=== PATIENT | male | born 1985 ===

== ENCOUNTER 2022-07-16 15:27 | Inpatient (IN) | payer OTHER ==
[~2022-07-16] VITALS: Wt 59.2 kg
[2022-07-16] VITALS (14 sets, daily range): BP systolic 97–114; BP diastolic 52–75
--- NOTE | 2022-07-16 19:10 | NUR ---
PT ARRIVED TO ICU AT 1745 UPON ARRIVAL, PT INSISTED ON USING COMMODE BEFORE BEING HOOKED UP TO TELE MONITOR. AFTER BM, PT ASSISTED TO HOSPITAL BED AND AGREED TO MONITORING. A/O, APPRECIATIVE OF CARE. SR WITH PVC'S, PROLONGED QT, BP STABLE. ON 2L NC TO MAINTAIN O2 SAT > 94%. LUNGS CTA, DIMISHED BASES. DENIES NAUSEA AT THIS TIME BUT HAD SEVERAL BOUTS OF VOMITING AND SEVERE NAUSEA BEFORE BEING TRANSPORTED FROM [facility]. BS HYPOACTIVE. PT OOB TO BSC TWICE, BM BOTH TIMES BUT NO URINE OUTPUT. PT HAS NOT HAD ANY UO SINCE ARRIVING AT [facility] PER RN REPORT. SKIN INTACT. 20 G PIV TO BILAT AC'S. SL. NOTIFIED DR. SOLIMAN UPON PT ARRIVAL. REPORT GIVEN TO ONCOMING RN.
[2022-07-16 19:48] LABS: BASOPHILS ABSOLUTE AUTO 0.07 K/mm3 (0.00-0.23); BASOPHILS PERCENT AUTO 1 % (0-2); EOSINOPHILS PERCENT AUTO 1 % (0-6); Hematocrit 49.1 % (37.0-53.0); Hemoglobin 16.9 g/dL (13.5-17.5); IMMATURE GRAN ABSOLUTE AUTO 0.05 K/mm3 (0.00-0.10); IMMATURE GRAN PERCENT AUTO 0 % (0-1); LYMPHOCYTES ABSOLUTE AUTO 1.27 K/mm3 (0.84-5.20); LYMPHOCYTES PERCENT AUTO 11 % (21-46); MONOCYTES ABSOLUTE AUTO 1.38 K/mm3 (0.16-1.47); MONOCYTES PERCENT AUTO 12 % (4-13); Mean Corpuscular HGB 30.7 pg (26.0-34.0); Mean Corpuscular HGB Conc 34.4 g/dL (31.5-36.5); Mean Corpuscular Volume 89 fL (80-100); Mean Platelet Volume 10.2 fL (9.1-12.4); NEUTROPHILS ABSOLUTE AUTO 8.36 K/mm3 (1.96-9.15); NEUTROPHILS PERCENT AUTO 75 % (41-73); Platelet Count 272 K/mm3 (150-400); RDW Coefficient Variation 11.9 % (11.7-14.2); RDW Standard Deviation 39.3 fL (35.1-46.3); White Blood Cell Count 11.23 K/mm3 (4.00-11.30)
[2022-07-16 20:33] LABS: Albumin, Blood 2.9 g/dL (3.4-5.0); Anion Gap Unable to Calculate mmol/L (6-16); Blood Urea Nitrogen 51 mg/dL (8-24); Bun/Creatinine Ratio 5.6 (12.0-20.0); CO2, Blood >45 mmol/L (21-32); Chloride, Blood 69 mmol/L (98-108); Creatinine, Blood 9.03 mg/dL (0.60-1.20); Glomerular Filtration Rate 7 (60-); Glucose, Blood 80 mg/dL (70-99); Phosphorus, Blood 6.7 mg/dL (2.5-4.9); Potassium, Blood 3.2 mmol/L (3.5-5.5); Sodium, Blood 125 mmol/L (136-145)
[2022-07-17] VITALS (23 sets, daily range): BP systolic 92–151; BP diastolic 43–90
--- NOTE | 2022-07-17 02:47 | NUR ---
PT UNABLE TO SWALLOW MEDICATIONS AT THIS POINT. ATTEMPT TO GIVE LIBRIUM CAPSULE TO PT RESULTED IN PT COUGING ON WATER AND SPITTING CAPSULE OUT. EMESIS BAG GIVEN TO PT IN CASE OF VOMIT. PT STARTED TO BLOW AIR INTO THE EMESIS BAG CLEARLY NOT UNDERSTANDING WHAT IT WAS FOR. PT NOT REDIRECTABLE.
[2022-07-17 03:37] LABS: BASOPHILS ABSOLUTE AUTO 0.08 K/mm3 (0.00-0.23); BASOPHILS PERCENT AUTO 1 % (0-2); EOSINOPHILS ABSOLUTE AUTO 0.62 K/mm3 (0.00-0.68); EOSINOPHILS PERCENT AUTO 6 % (0-6); Hematocrit 44.8 % (37.0-53.0); Hemoglobin 15.6 g/dL (13.5-17.5); IMMATURE GRAN ABSOLUTE AUTO 0.02 K/mm3 (0.00-0.10); IMMATURE GRAN PERCENT AUTO 0 % (0-1); LYMPHOCYTES ABSOLUTE AUTO 2.03 K/mm3 (0.84-5.20); LYMPHOCYTES PERCENT AUTO 18 % (21-46); MONOCYTES ABSOLUTE AUTO 1.41 K/mm3 (0.16-1.47); MONOCYTES PERCENT AUTO 13 % (4-13); Mean Corpuscular HGB 31.5 pg (26.0-34.0); Mean Corpuscular HGB Conc 34.8 g/dL (31.5-36.5); Mean Corpuscular Volume 91 fL (80-100); Mean Platelet Volume 10.1 fL (9.1-12.4); NEUTROPHILS ABSOLUTE AUTO 7.02 K/mm3 (1.96-9.15); NEUTROPHILS PERCENT AUTO 63 % (41-73); Platelet Count 291 K/mm3 (150-400); RDW Standard Deviation 39.7 fL (35.1-46.3); Red Blood Cell Count 4.95 M/mm3 (4.30-5.90); White Blood Cell Count 11.18 K/mm3 (4.00-11.30)
[2022-07-17 04:02] LABS: Magnesium, Blood 1.9 mg/dL (1.6-2.4)
[2022-07-17 04:24] LABS: Albumin, Blood 2.7 g/dL (3.4-5.0); Bilirubin, Total 0.8 mg/dL (0.1-1.0); Bun/Creatinine Ratio 6.1 (12.0-20.0); Calcium, Blood 6.8 mg/dL (8.5-10.1); Creatinine, Blood 8.74 mg/dL (0.60-1.20); Globulin, Blood 2.7 g/dL (2.2-4.0); Potassium, Blood 2.6 mmol/L (3.5-5.5); Total Protein, Blood 5.4 g/dL (6.4-8.2)
--- NOTE | 2022-07-17 05:41 | NUR ---
END OF SHIFT SUMMARY PT BEGAN ADMISSION A/O X4. PT WAS LETHARGIC BUT ANSWERED QUESTIONS APPROPRIATELY. WITHIN A FEW HOURS HE STARTED TO GET MORE AND MORE CONFUSED, SWEATING, MINOR TREMORS ONLY BY FEEL. CIWA AT ADMISSION 1-2, INCREASED TO 20 BY 0200. LIBRIUM GIVEN EARLY IN SHIFT AND PATIENT WAS ABLE TO SWALLOW THE CAPSULES. ATTEMPT TO GIVE LIBRIUM A FEW HOURS LATER FAILED D/T PATIENT CONFUSION AND INABILITY TO SWALLOW CAPSULE. ATIVAN GIVEN 2 TIMES THIS SHIFT. CIWA AT 20 AT 0210, 4MG ATIVAN GIVEN AT THAT TIME. AT 0430 PT BEGAN TO DESAT IN LOW 80'S WITH SHALLOW BREATHING. HEAD OF BED ELEVATED AND VIGOROUS SUCTION INITIATED WITH MINIMAL RECOVERY. AXYMIZER INCREASED TO 9 LPM WITH ACHIEVED >93% SATURATION. CARDIAC- HR 70'S-80'S MOST OF THE SHIFT WITH INTERMITENT TACHY EPISODES THROUGHOUT THE NIGHT. SBP 100'S WITH NO CHANGED THROUGHOUT THE SHIFT. FREQUENT PVC'S APPARENT WHEN PT WAS ADMITTED AND HAS SINCE SUBSIDED AT THIS TIME. RESP- PT UNABLE TO MAINTAIN SATS ABOVE 90% WITHOUT SUPPLEMENTATION. EXPIRATORY WHEEZE IN LEFT LOBES WITH NON PRODUCTION CONGESTED WEAK COUGH. PT IS NOT FOLLOWING COMMANDS AT THIS TIME. PT HAS SEVERE APNEIC EPISODES WHILE SLEEPING, RESULTING IN SMALL SHALLOW BREATHS AND DESATS IN LOW 80'S. GI, - NO URINE PRODUCED THIS SHIFT. BLADDER SCAN SHOWED ONLY 90 CC'S URINE. UNABLE TO COLLECT URINE SPECIMEN. NO BM THIS SHIFT. C/O NAUSEA WHEN ADMITTED, HOWEVER DENIES ANY NOW. INTEG- PT IS PALE IN COLOR AND SWEATING PROFUSELY. SMALL SCATTERED BRUISING WITH NO OPEN WOUNDS OR SORES. LR'S RUNNING AT 125 MLS/HR WITH SECOND BAG HUNG NOW. 20 MEQ POTASSIUM RUNNING AT THIS TIME. LEFT AND RIGHT AC IV'S WERE NOT STARTED AT THIS FACILITY. IV IN RIGHT FOREARM PLACED BY CHRISTA HOLMAN THIS SHIFT. WILL CONTINUE TO MONITOR PT UNTIL REPORT IS GIVEN TO DAYSHIFT.
--- NOTE | 2022-07-17 07:57 | NUR ---
ASSUMED CARE OF PT AT 0715 PT APPEARS TO BE RESTING COMFORTABLY, HOB ELEVATED, ON 9L VIA OXYMIZER. SOMNOLENT AND ORIENTED TO PERSON ONLY. NO URINE OUTPUT. BLADDER SCAN REVEALED 90ML IN BLADDER. V/S STABLE. RN TO CONITNUE TO MONITOR.
[2022-07-17 08:46] LABS: Phosphorus, Blood 4.9 mg/dL (2.5-4.9)
--- NOTE | 2022-07-17 13:37 | NUR ---
PT REMAINS SOMONLENT, AROUSABLE TO VOICE AND ORIENTED X PERSON AND PLACE. SPEECH SLOW AND MUMBLED BUT COHERENT. NO HALLUCINATIONS OR TREMORS NOTED. OOB TO STAND AT BEDSIDE TO VOID. 400ML UO VOIDED INTO URINAL. DR. CACERES UPDATED ON I/O. 1400 LABS ORDERED, WOULD LIKE TO BE NOTIFIED OF RESULTS BY 1500. RN TO CONTINUE TO MONITOR.
[2022-07-17 14:29] LABS: Albumin, Blood 2.5 g/dL (3.4-5.0); Anion Gap 11 mmol/L (6-16); Blood Urea Nitrogen 49 mg/dL (8-24); Bun/Creatinine Ratio 6.3 (12.0-20.0); CO2, Blood 37 mmol/L (21-32); Calcium, Blood 6.8 mg/dL (8.5-10.1); Chloride, Blood 84 mmol/L (98-108); Creatinine, Blood 7.76 mg/dL (0.60-1.20); Glomerular Filtration Rate 9 (60-); Glucose, Blood 65 mg/dL (70-99); Magnesium, Blood 1.7 mg/dL (1.6-2.4); Phosphorus, Blood 4.1 mg/dL (2.5-4.9); Potassium, Blood 2.6 mmol/L (3.5-5.5); Sodium, Blood 132 mmol/L (136-145)
--- NOTE | 2022-07-17 18:50 | NUR ---
END OF SHIFT SUMMARY PT WITH INCREASING MENTATION THIS SHIFT. AWAKE AND WATCHING TV. HAS BEEN OOB WITH MODERATE ASSIST X2 TO URINATE AND HAVE BM, REMAINS VERY WEAK. SR, BP STABLE. TITRATED O2 DOWN TO 2L NC. LUNGS CLEAR WITH DIMISHED BASES. OCCASIONAL COUGH, LOOSE BUT NON-PRODUCTIVE. DRINKING AND EATING WITHOUT DIFFICULTY, APPETITE POOR, HAD ENSURE AND PUDDING FOR DINNER. DENIES NAUSEA, NO VOMITING. VOIDS USING URINAL WITH ASSIST WHILE STANDING AT BEDSIDE. SKIN INTACT. PARTIAL BATH DONE WHILE OOB TO COMMODE. LINENS CHANGED. PIV X3, NS AT 15OML/HR, POTASSIUM REPLACEMENT INFUSING. DR. CACERES REQUESTS BUMEX IV AFTER POTASSIUM INFUSION COMPLETED, THEN STAT SERUM POTASSIUM DRAW. HE REQUESTS TO BE CALLED WITH THE RESULTS. REPORT TO ONCOMIN SHIFT.
--- NOTE | 2022-07-17 19:44 | NUR ---
ASSUMED CARE OF PT AT 1900 A/O X4. ABLE TO MAKE NEEDS KNOWN. PT UP TO BEDSIDE COMMODE AT SHIFT CHANGE FOR BM AND 450 MLS URINE OUT. PT VERY WEAK AND NEEDS 1 PERSON ASSIST AT THIS TIME. 2 LPM NC WITH >93%. DESATS WHEN UP TO COMMODE. NS @150 MLS/HR K RUNNING AT THIS TIME. SEE FULL ASSESSMENT FOR FURTHER INFORMATION.
[2022-07-18 03:25] LABS: BASOPHILS ABSOLUTE AUTO 0.06 K/mm3 (0.00-0.23); BASOPHILS PERCENT AUTO 1 % (0-2); EOSINOPHILS ABSOLUTE AUTO 0.64 K/mm3 (0.00-0.68); EOSINOPHILS PERCENT AUTO 5 % (0-6); Hematocrit 49.3 % (37.0-53.0); Hemoglobin 16.9 g/dL (13.5-17.5); IMMATURE GRAN ABSOLUTE AUTO 0.03 K/mm3 (0.00-0.10); IMMATURE GRAN PERCENT AUTO 0 % (0-1); LYMPHOCYTES ABSOLUTE AUTO 1.69 K/mm3 (0.84-5.20); LYMPHOCYTES PERCENT AUTO 14 % (21-46); MONOCYTES PERCENT AUTO 12 % (4-13); Mean Corpuscular HGB 31.2 pg (26.0-34.0); Mean Corpuscular HGB Conc 34.3 g/dL (31.5-36.5); Mean Corpuscular Volume 91 fL (80-100); Mean Platelet Volume 10.5 fL (9.1-12.4); NEUTROPHILS ABSOLUTE AUTO 8.19 K/mm3 (1.96-9.15); NEUTROPHILS PERCENT AUTO 68 % (41-73); Platelet Count 254 K/mm3 (150-400); RDW Coefficient Variation 11.7 % (11.7-14.2); RDW Standard Deviation 38.9 fL (35.1-46.3); Red Blood Cell Count 5.42 M/mm3 (4.30-5.90); White Blood Cell Count 12.01 K/mm3 (4.00-11.30)
[2022-07-18 03:51] LABS: Albumin, Blood 2.4 g/dL (3.4-5.0); Anion Gap 6 mmol/L (6-16); Blood Urea Nitrogen 48 mg/dL (8-24); Bun/Creatinine Ratio 8.4 (12.0-20.0); CO2, Blood 36 mmol/L (21-32); Calcium, Blood 7.4 mg/dL (8.5-10.1); Chloride, Blood 91 mmol/L (98-108); Glomerular Filtration Rate 12 (60-); Glucose, Blood 83 mg/dL (70-99); Magnesium, Blood 1.6 mg/dL (1.6-2.4); Phosphorus, Blood 3.8 mg/dL (2.5-4.9); Potassium, Blood 2.9 mmol/L (3.5-5.5); Sodium, Blood 133 mmol/L (136-145); Uric Acid, Blood 14.7 mg/dL (3.5-7.2)
--- NOTE | 2022-07-18 05:21 | NUR ---
END OF SHIFT SUMMARY PT RESTED MOST OF THE NIGHT WITHOUT ISSUE. A/O X2. PT CONFUSED OF WHERE HE IS. ALSO STATES "I FEEL LIKE I AM IN A DIFFERENT WORLD". DENIES HALLUCINATIONS HOWEVER DOES GRAB AT THE AIR AND CONFUSED OF CORDS AND LINES ATTACHED TO HIM. PT IS VERY WEEK WHEN STANDING ON HIS OWN. NEEDS ONE PERSON ASSIST. PT WILL TRY TO GET UP OFF OF BEDSIDE COMMODE ON HIS OWN. RESP- 2 LPM NC WITH NO DESAT EPISODES THIS SHIFT. COUGH IS GETTING STRONGER. NO EXPIRATORY WHEEZE ON LEFT SIDE HEARD ANYMORE. CARDIAC- NSR WITH NO ACUTE CHANGES. HR AND BP WNL. GI,- PT HAS HAD MULTIPLE LIQUID STOOLS BROWN IN COLOR. PT DID NOT LISTEN WHEN SITTING ON COMMODE AND URINE WAS MIXED WITH STOOL. BEST GUESS WAS RECORDED. INTEG- NO ACUTE CHANGES. NS 100 LS/HR. WILL CONTINUE TO MONITOR UNTIL REPORT GIVEN TO DAY SHIFT RN.
[2022-07-18 06:23] LABS: Osmolality, Serum 290 mos/KG (275-300)
--- NOTE | 2022-07-18 09:24 | NUR ---
ASSUMED CARE REPORT FROM NANCY RN AT 0700. PT RESTING IN BED. WAKES c VERBAL STIMULI. FOLLOWS COMMANDS. ORIENTED TO SELF, PLACE, STATES YEAR 20[birth year]. IRRITABLE ABOUT NEURO QUESTIONS. ABLE TO MAKE NEEDS KNOWN. REPORTS GENERALIZED WEAKNESS. ABLE TO GET UP c STANDBY ASSIST TO BSC. LIQUID BROWN STOOL OUT, SENT TO LAB. USING URINAL, 350 CLEAR YELLOW URINE OUT. POOR APPETITE. ABD ROUND, SOFT, NON TENDER. BT X 4. DENIES N/V. PIV X 3. IVF AND KCL INFUSING. STATUS CHANGED TO PCU. WILL CONTINUE TO MONITOR.
[2022-07-18 10:00] VITALS: BP 141/100
[2022-07-18 10:43] LABS: Adenovirus F 40/41 Not Detected (NOT DETECT); Campylobacter Sp Not Detected (NOT DETECT); Cryptosporidium Not Detected (NOT DETECT); Cyclospora Cayetanensis Not Detected (NOT DETECT); E. Coli O157 Not Detected (NOT DETECT); Entamoeba Histolytica Not Detected (NOT DETECT); Enteroaggregative E. coli-EAEC Not Detected (NOT DETECT); Enteropathogenic E. coli-EPEC Not Detected (NOT DETECT); Enterotoxigenic E. coli-ETEC Not Detected (NOT DETECT); Giardia Lamblia Not Detected (NOT DETECT); Plesiomonas Shigelloides Not Detected (NOT DETECT); Salmonella Sp Not Detected (NOT DETECT); Shiga Toxin-prod E. coli-STEC Not Detected (NOT DETECT); Shigella/Enteroin E. coli-EIEC Not Detected (NOT DETECT); Vibrio Cholerae Not Detected (NOT DETECT); Vibrio Sp Not Detected (NOT DETECT); Yersinia Enterocolitica Not Detected (NOT DETECT)
[2022-07-18 10:44] LABS: Astrovirus Not Detected (NOT DETECT); Norovirus GI/GII Not Detected (NOT DETECT); Rotavirus A Not Detected (NOT DETECT); Sapovirus Not Detected (NOT DETECT)
[2022-07-18 12:37] LABS: Albumin, Blood 2.4 g/dL (3.4-5.0); Anion Gap 3 mmol/L (6-16); Blood Urea Nitrogen 46 mg/dL (8-24); Bun/Creatinine Ratio 10.7 (12.0-20.0); CO2, Blood 36 mmol/L (21-32); Calcium, Blood 7.9 mg/dL (8.5-10.1); Chloride, Blood 93 mmol/L (98-108); Creatinine, Blood 4.28 mg/dL (0.60-1.20); Glomerular Filtration Rate 17 (60-); Glucose, Blood 132 mg/dL (70-99); Phosphorus, Blood 2.2 mg/dL (2.5-4.9); Potassium, Blood 2.9 mmol/L (3.5-5.5); Sodium, Blood 132 mmol/L (136-145)
[2022-07-18 14:00] VITALS: BP 123/88
--- NOTE | 2022-07-18 17:37 | NUR ---
SHIFT SUMMARY PT MENTATION IMPROVED THIS SHIFT. A&OX 3. FOLLOWS COMMANDS. INDEPENDENT IN ROOM. WEAKNESS IMPROVED. STANDBY ASSIST. UP TO SHOWER INDEPENDENTLY. LUNGS CLEAR. ON RA. SR, RATE 70'S. BP STABLE. TOLERATING DIET WELL. K REPLACED THIS SHIFT, KPHOS INFUSING AT THIS TIME, PLAN FOR REPEAT LABS AT 2300, TO CALL MORRIS finley RESULTS AT 0000. PT CONTINUES TO HAVE LOOSE STOOLS BUT STATES THEY ARE IMPROVED p IMMODIUM. STATUS CHANGED TO PCU. WILL CONTINUE TO MONITOR UNTIL REPORT TO ONCOMING NURSE.
[2022-07-18 18:15] VITALS: BP 154/100
[2022-07-18 19:49] VITALS: BP 151/102
--- NOTE | 2022-07-18 20:09 | NUR ---
PATIENT RESTING QUIETLY IN BED. ANSWERING QUESTIONS APPROPRIATELY. UP TO TOILET AT CHANGE OF SHIFT WITHOUT DIFFICULTY. PATIENT VERBALIZED THAT HIS STOOL IS NOT LOOSE AFTER TAKING IMODIUM. CIWA 0. NO COMPLAINTS AT THIS TIME. PLAN ON REPEAT LABS AT 2300.
[2022-07-18 23:10] LABS: Magnesium, Blood 1.3 mg/dL (1.6-2.4); Phosphorus, Blood 3.2 mg/dL (2.5-4.9)
[2022-07-19 00:01] VITALS: BP 151/100
[2022-07-19 04:52] VITALS: BP 181/101
--- NOTE | 2022-07-19 06:08 | NUR ---
PATIENT SLEEPING, AWAKENS TO SLIGHT STIMULI FOR LAB DRAW. WHEN ASKED IF WANTED ICE IN HIS WATER, PATIENT VERBALIZED " CAN YOU JUST LET ME SLEEP " WHEN 0600 PRILOSEC BROUGHT TO DOOR, PATIENT ALREADY BACK TO SLEEP. WILL GIVE MED NEXT TIME PATIENT UP TO TOILET
[2022-07-19 06:09] LABS: BASOPHILS ABSOLUTE AUTO 0.06 K/mm3 (0.00-0.23); BASOPHILS PERCENT AUTO 1 % (0-2); EOSINOPHILS PERCENT AUTO 7 % (0-6); Hematocrit 44.2 % (37.0-53.0); Hemoglobin 15.1 g/dL (13.5-17.5); IMMATURE GRAN ABSOLUTE AUTO 0.01 K/mm3 (0.00-0.10); IMMATURE GRAN PERCENT AUTO 0 % (0-1); LYMPHOCYTES ABSOLUTE AUTO 1.89 K/mm3 (0.84-5.20); LYMPHOCYTES PERCENT AUTO 23 % (21-46); MONOCYTES ABSOLUTE AUTO 0.98 K/mm3 (0.16-1.47); MONOCYTES PERCENT AUTO 12 % (4-13); Mean Corpuscular HGB 31.3 pg (26.0-34.0); Mean Corpuscular HGB Conc 34.2 g/dL (31.5-36.5); Mean Corpuscular Volume 92 fL (80-100); Mean Platelet Volume 10.4 fL (9.1-12.4); NEUTROPHILS ABSOLUTE AUTO 4.68 K/mm3 (1.96-9.15); NEUTROPHILS PERCENT AUTO 57 % (41-73); Platelet Count 230 K/mm3 (150-400); RDW Coefficient Variation 11.7 % (11.7-14.2); Red Blood Cell Count 4.83 M/mm3 (4.30-5.90); White Blood Cell Count 8.22 K/mm3 (4.00-11.30)
[2022-07-19 06:27] LABS: Anion Gap 2 mmol/L (6-16); Blood Urea Nitrogen 33 mg/dL (8-24); Bun/Creatinine Ratio 16.4 (12.0-20.0); CO2, Blood 32 mmol/L (21-32); Chloride, Blood 100 mmol/L (98-108); Creatinine, Blood 2.01 mg/dL (0.60-1.20); Glomerular Filtration Rate 43 (60-); Glucose, Blood 97 mg/dL (70-99); Phosphorus, Blood 2.5 mg/dL (2.5-4.9); Potassium, Blood 3.5 mmol/L (3.5-5.5); Sodium, Blood 134 mmol/L (136-145)
--- NOTE | 2022-07-19 06:37 | NUR ---
SUMMARY PATIENT SLEEPING ON AND OFF T/O NIGHT. ABLE TO GET UP IN ROOM TO TOILET WITHOUT DIFFICULTY. PATIENT VERBALIZED THAT STOOL IS NOW " FEELING NORMAL" PATIENT FLUSHING TOILET BEFORE ABLE TO SEE STOOL. MEDICATED ONCE WITH IMODIUM. FLAT AFFECT T/O NIGHT, VERBALIZED FRUSTRATION WITH BEING WOKEN UP T/O NIGHT.
[2022-07-19 07:43] VITALS: BP 174/98
--- NOTE | 2022-07-19 07:49 | NUR ---
ASSUMED CARE ASSUMED CARE OF THE PATIENT AT 0700. PATIENT IS RESTING IN ROOM AND REQUESTS STAFF TO MINIMALLY BE IN ROOM. VITALS TAKEN AND BREAKFAST TRAY GIVEN. PATIENT INDEPENDENTLY WENT TO BATHROOM, STATED THAT HE HAD A BOWEL MOVEMENT AND IT WAS NOT DIARRHEA.
[2022-07-19] MEDS ORDERED: Zestril30 MG PO (08:10)
[2022-07-19] MEDS ORDERED: AMLO10 PO (08:10)
--- NOTE | 2022-07-19 08:14 | NUR ---
ASSUMED CARE OF LOU AT 0700, HE IS VERY WITHDRAWN HAVING A FLAT AFFECT AND UNENGAGING. HE IS COMPLAINING OF BEING "BOTHERED" BY STAFF. TRIED TO ENCOURAGE. IN TO SEE PT JUST AFTER REPORT COMPLETED, ORDERS RECEIVED VIA PHONE CALL AFTER HE LEFT. PT IS NOW SITTING UPRIGHT, TAKING IN HIS BREAK- FAST AND ANSWERING QUESTIONS. HE IS BEING CARED FOR BY THE STUDENT AND I CON- CUR WITH HER CHARTING.
[2022-07-19 08:42] VITALS: BP 139/92
--- NOTE | 2022-07-19 09:13 | NUR ---
PT'S POTASSIUM-PHOSPHATE INFUSING. WILL START THE ONCE A DAY THIAMINE AND FOLIC ACID ONCE IT IS DONE INFUSING.
--- NOTE | 2022-07-19 16:02 | NUR ---
CHECKED ON PATIENT, HE IS SLEEPING. CHEST RISING EQUALLY AND APPEARS COMFORTABLE. WILL CONTINUE TO MONITOR.
[2022-07-19 16:34] VITALS: BP 143/95
[2022-07-19 17:17] LABS: Magnesium, Blood 1.6 mg/dL (1.6-2.4); Potassium, Blood 3.6 mmol/L (3.5-5.5)
--- NOTE | 2022-07-19 17:19 | NUR ---
SHIFT SUMMARY THE PATIENT HAS BEEN RESTING IN HIS ROOM FOR THIS SHIFT. THE PATIENT BEGAN THE SHIFT WITH A FLAT, WITHDRAWN AFFECT AND HAS PROGRESSIVELY GOTTEN MORE TALKATIVE BUT STILL HAS A FLAT AFFECT. AT THE BEGINNING OF THE SHIFT THE PATIENT'S STATUS WAS CHANGED TO MED NO TELE, SO HE WAS TAKEN OFF OF CONTINUOUS CARDIAC MONITORING. THE PATIENT IS STILL HYPERTENSIVE WITH HIS MOST RECENT BLOOD PRESSURE BEING 143/95 WITH A MAP OF 110. THE PATIENT HAS MOVED INDEPENDENTLY AROUND THE UNIT AND IN HIS ROOM DURING THIS SHIFT. THE PATIENT STATED THAT HIS DIARRHEA HAS SUBSIDED, ALTHOUGH HE DID SAY THAT HIS MOST RECENT BM WAS LOOSE. THIS STUDENT NURSE WILL CONTINUE TO MONITOR UNTIL CARE IS TRANSITIONED TO NOC SHIFT.
--- NOTE | 2022-07-19 17:45 | NUR ---
LAB RESULTS FROM 1700 LAB CALLED TO VIA TELEPHONE, ORDERS RECEIVED. PT IS CURRENTLY UP IN THE SHOWER AND MORE ENGAGING THAN EARLIER IN THE DAY.
[2022-07-19 19:50] VITALS: BP 145/103
--- NOTE | 2022-07-19 20:05 | NUR ---
PATIENT RESTING QUIETLY IN BED. VERBALIZED FEELING BETTER TONIGHT. UP IN ROOM WITHOUT DIFFICULTY. PATIENT VERBALIZED NO LONGER HAVING DIARRHEA. NO C/O N/V. MED NO TELE STATUS
--- NOTE | 2022-07-19 23:57 | NUR ---
PATIENT APPEARS TO BE SLEEPING RESP EVEN AND UNLABORED
[2022-07-20 03:29] VITALS: BP 157/110
[2022-07-20 03:32] LABS: BASOPHILS ABSOLUTE AUTO 0.06 K/mm3 (0.00-0.23); BASOPHILS PERCENT AUTO 1 % (0-2); EOSINOPHILS ABSOLUTE AUTO 0.58 K/mm3 (0.00-0.68); EOSINOPHILS PERCENT AUTO 8 % (0-6); Hematocrit 41.8 % (37.0-53.0); Hemoglobin 14.1 g/dL (13.5-17.5); IMMATURE GRAN ABSOLUTE AUTO 0.01 K/mm3 (0.00-0.10); IMMATURE GRAN PERCENT AUTO 0 % (0-1); LYMPHOCYTES ABSOLUTE AUTO 2.36 K/mm3 (0.84-5.20); LYMPHOCYTES PERCENT AUTO 32 % (21-46); MONOCYTES ABSOLUTE AUTO 0.77 K/mm3 (0.16-1.47); MONOCYTES PERCENT AUTO 11 % (4-13); Mean Corpuscular HGB 30.8 pg (26.0-34.0); Mean Corpuscular HGB Conc 33.7 g/dL (31.5-36.5); Mean Corpuscular Volume 91 fL (80-100); Mean Platelet Volume 10.3 fL (9.1-12.4); NEUTROPHILS ABSOLUTE AUTO 3.53 K/mm3 (1.96-9.15); NEUTROPHILS PERCENT AUTO 48 % (41-73); Platelet Count 231 K/mm3 (150-400); RDW Coefficient Variation 11.6 % (11.7-14.2); RDW Standard Deviation 38.8 fL (35.1-46.3); Red Blood Cell Count 4.58 M/mm3 (4.30-5.90); White Blood Cell Count 7.31 K/mm3 (4.00-11.30)
--- NOTE | 2022-07-20 03:42 | NUR ---
PATIENT AWAKE FOR LAB. PATIENT APPEARS IN BETTER SPIRITS THIS MORNING. VERBALIZED THAT HE WAS ABLE TO SLEEP APROX 3 HRS.
[2022-07-20 03:50] LABS: Anion Gap 1 mmol/L (6-16); Blood Urea Nitrogen 16 mg/dL (8-24); Bun/Creatinine Ratio 14.7 (12.0-20.0); CO2, Blood 28 mmol/L (21-32); Calcium, Blood 7.9 mg/dL (8.5-10.1); Chloride, Blood 106 mmol/L (98-108); Creatinine, Blood 1.09 mg/dL (0.60-1.20); Glomerular Filtration Rate 90 (60-); Glucose, Blood 106 mg/dL (70-99); Magnesium, Blood 1.7 mg/dL (1.6-2.4); Phosphorus, Blood 2.4 mg/dL (2.5-4.9); Potassium, Blood 3.5 mmol/L (3.5-5.5); Sodium, Blood 135 mmol/L (136-145)
--- NOTE | 2022-07-20 05:26 | NUR ---
SUMMARY PATIENT SLEEPING OFF AND ON T/O NIGHT. PATIENT VERBALIZED THAT HE IS FEELING MUCH BETTER. UP IN ROOM WITHOUT DIFFICULTY. VERBALIZED THAT HE IS PLANNING TO WORK WITH HIS PRIMARY DOCTOR AT HOME REGARDING HIS HYPERTENSION. NO BM DURING THE NIGHT.
--- NOTE | 2022-07-20 07:48 | NUR ---
CARE OF PT ASSUMED AT 0700. PT AWAKE AND ORIENTED THIS AM. PT IRRITABLE AND REQUESTS TO GO HOME. DR BECERRA IN TO SEE PT THIS AM W PLANS TO DC PT HOME. KPHOS 10MMOL INFUSING NOW.
[2022-07-20] MEDS ORDERED: OMEP20ER PO (08:38)
[2022-07-20] MEDS ORDERED: MAGNESIUM OXID500 MG PO ×2 (08:38→10:18)
[2022-07-20] MEDS ORDERED: POTA8 PO (08:39)
[2022-07-20] MEDS ORDERED: POTA10T PO (10:17)
[2022-07-20 10:20] VITALS: BP 156/105
--- NOTE | 2022-07-20 10:30 | NUR ---
VERBAL AND WRITTN DC INFO GIVEN TO PT AND PT'S MOTHER WITH CLEAR UNDERSTANDING. POTASSIUM TO BE CALLED TO [facility] IN [facility] PER PT REQUEST. DBP ELEVATED, PT STATES HE IS VERY ANXIOUS ABOUT LEAVING AND WOULD LIKE TO GO HOME. PT TO FOLLOW UP W PCP.
== END 2022-07-20 10:30 | disposition home or self-care (01) | DRG 682 ==
LOC: ICUW 15:27 → ICUE 16:14 → ICUW 07-18 08:23
PROVIDERS: Family Medicine; Internal Medicine Nephrology; Student in an Organized Health Care Education/Training Program; ADMIT Internal Medicine
DX: N17.9 Acute kidney failure, unspecified (principal); G92.8 Other toxic encephalopathy; E87.1 Hypo-osmolality and hyponatremia; F10.239 Alcohol dependence with withdrawal, unspecified; M62.82 Rhabdomyolysis; E86.9 Volume depletion, unspecified; E83.39 Other disorders of phosphorus metabolism; E87.6 Hypokalemia; F17.210 Nicotine dependence, cigarettes, uncomplicated; E88.09 Other disorders of plasma-protein metabolism, not elsewhere classified; I95.9 Hypotension, unspecified; E86.1 Hypovolemia; I10 Essential (primary) hypertension; D72.829 Elevated white blood cell count, unspecified; E79.0 Hyperuricemia without signs of inflammatory arthritis and tophaceous disease; E83.42 Hypomagnesemia; D64.9 Anemia, unspecified; Z71.41 Alcohol abuse counseling and surveillance of alcoholic; Z79.899 Other long term (current) drug therapy; Z71.6 Tobacco abuse counseling
CPT/HCPCS: 36415; 71045; 76770; 80053; 80069; 82140; 82533; 82550; 82570; 83735; 83930; 84100; 84132; 84300; 84443; 84550; 85025; 87507; 94762; A9270; J0360; J1644; J2060; J3411; J3475; J3480; J7030; J7050; J7060; J7120